=== PATIENT | male | born 1955 ===

== ENCOUNTER 2016-11-23 07:56 | Day surgery (SDC) | payer BC ==
[2016-11-23] MEDS ORDERED: BUPIVACAINE 0.5% W/EPI MPF 30 ML VIAL IVP ONE (12:37)
[2016-11-23] MEDS ORDERED: LIDOCAINE 1% W/EPI 1:200,000 MPF 30ML SQ ONE (12:37)
[2016-11-23] MEDS ORDERED: DEXAMETHASONE PRESERVATIVE FREE 10MG/ML VIAL IV ONE (12:37)
--- NOTE | 2016-11-23 13:10 | Operative Note ---
PAIN SERVICE OPERATIVE REPORT DATE OF PROCEDURE: 11/23/2016. PREOPERATIVE DIAGNOSIS: CERVICAL SPONDYLOSIS WITHOUT MYELOPATHY, ICD10 CODE M47.812. PROCEDURE: Radiofrequency rhizotomy bilateral cervical facets 4-5, 5-6, and 6-7. SURGEON: Nael Ríos D.O. ANESTHESIA: Local sedation. ANESTHESIA PROVIDER: Reyes Bernal CRNA. INDICATIONS: This patient presents with primary neck pain. Examination shows tenderness in the cervical spine. Range of motion does cause pain into the neck with extension. Diagnostic imaging shows multilevel spondylosis and osteophytic spur formation. A facet series resulted in 75 to 90% pain control. Due to the failure of all therapies and the success of the facet series, the patient presents for rhizotomy for more long-term relief. DESCRIPTION OF PROCEDURE: Intravenous line, vital sign monitoring, and IV sedation. Prepped and draped with sterile technique. Under imaging, facet levels 4-5, 5-6, and 6-7 were marked bilaterally. The skin was infiltrated. A 20-gauge rhizotomy cannula was positioned. Stimulation trials were conducted. Rhizotomy burn was performed. Local with anti-inflammatory into the sites. Topical antibiotic and sterile dressings were applied. We will monitor and evaluate. Nael Ríos D.O. Date Time Job Number: [id number] cc: Fernando Ibarra
[2016-11-23] MEDS ORDERED: PROPOFOL 10 MG/ML VIAL IV ONE (14:44)
[2016-11-23] MEDS ORDERED: LIDOCAINE 2% MDV (20MG/ML) 20ML VIAL IV ONE (14:44)
[2016-11-23] MEDS ORDERED: MIDAZOLAM HCL 2MG/2ML VIAL IV ONE (14:44)
[2016-11-23] MEDS ORDERED: FENTANYL PF 100MCG/2ML VIAL IV ONE (14:44)
== END 2016-11-23 10:20 | disposition home or self-care (01) ==
LOC: SUR 07:56
PROVIDERS: ATTEND Pain Medicine Interventional Pain Medicine
DX: M47.812 Spondylosis without myelopathy or radiculopathy, cervical region (principal)
CPT/HCPCS: 64633; 64634 ×2; 01936; J1100; J3010

== ENCOUNTER 2019-12-04 06:29 | Day surgery (SDC) | payer BC ==
[2019-12-04] MEDS ORDERED: FENTANYL PF 100MCG/2ML VIAL IV ONE (06:30)
[2019-12-04] MEDS ORDERED: MIDAZOLAM HCL 2MG/2ML VIAL IV ONE (06:30)
[2019-12-04] MEDS ORDERED: LIDOCAINE 2% MDV (20MG/ML) 20ML VIAL IV ONE (06:30)
[2019-12-04] MEDS ORDERED: PROPOFOL 10 MG/ML VIAL IV ONE (06:30)
[2019-12-04] MEDS ORDERED: RINGERS SOLUTION,LACTATED 1,000 ML IV ONE (06:50)
[2019-12-04] MEDS ORDERED: LIDOCAINE 1% W/EPI 1:100,000 MDV 20 ML VIAL SQ ONE (08:33)
[2019-12-04] MEDS ORDERED: DEXAMETHASONE PRESERVATIVE FREE 10MG/ML VIAL IM ONE (08:33)
[2019-12-04] MEDS ORDERED: BUPIVACAINE 0.5% W/EPI MPF 30 ML VIAL SQ ONE (08:33)
--- NOTE | 2019-12-04 09:11 | Operative Note - [place] ---
DATE OF SURGERY: 12/04/2019 PREOPERATIVE DIAGNOSIS: POST CERVICAL LAMINECTOMY SYNDROME, ICD-10 CODE M96.1 WITH CERVICAL SPONDYLOSIS WITHOUT MYELOPATHY, ICD-10 CODE M47.812. OPERATION: RADIOFREQUENCY RHIZOTOMY BILATERAL CERVICAL FACETS C4-C5 AND C5-C6. SURGEON: Nael Ríos D.O. INDICATION: This patient presents with primary neck pain. The pain level 0-10 is an 8. No side effects from the previous procedures which were a series of facet injections that resulted in 75% pain control. He had improved mobility and flexibility. He continued to have some pain into his extremities, but overall felt 75+% pain control and requested moving on to the rhizotomy. His examination does show an area of tenderness of the cervical spine. Range of motion produces pain into the neck and shoulders with extension. Diagnostics reviewed showing effusion and diffuse spondylitic change. PROCEDURE: Intravenous line, vital sign monitoring, IV sedation, prepped and draped, sterile technique. Under imaging the cervical facets at C4-C5 and C5-C6 were identified and marked, skin infiltrated. Under imaging a 20-gauge rhizotomy cannula was positioned at each of the sites bilaterally. Stimulation trial was conducted. Rhizotomy burn performed along with antiinflammatory. Rhizotomy 80 degrees, 90 seconds at each of the sites bilaterally along with anti-inflammatories into the sites. Topical antibiotic, sterile dressing applied. Will monitor and evaluate. JOB NUMBER: [id number] MTDD
== END 2019-12-04 09:06 | disposition home or self-care (01) ==
LOC: SUR 06:29
PROVIDERS: ATTEND Pain Medicine Interventional Pain Medicine
DX: M96.1 Postlaminectomy syndrome, not elsewhere classified (principal); M47.812 Spondylosis without myelopathy or radiculopathy, cervical region; G47.33 Obstructive sleep apnea (adult) (pediatric); Z87.891 Personal history of nicotine dependence
CPT/HCPCS: 36416; 82948; J7120